=== PATIENT | male | born 1990 | race Caucasian/White ===

== ENCOUNTER 2016-09-23 15:34 | Emergency (ER) | payer OTHER ==
[2016-09-23 15:41] VITALS: BP 117/83; PULSE 73; TEMP 98.1; BMI 24.3
[2016-09-23] MEDS ORDERED: IBUPROFEN 400 MG TABLET (FP) PO ONE ×2 (16:39→16:41)
--- NOTE | 2016-09-23 16:41 | PDOC ---
History of Present Illness - General Chief Complaint: Injury Stated Complaint: BACK PAIN Time Seen by Provider: 09/23/16 16:21 History Source: Patient - History of Present Illness Occurred: reports: other Pain Location: reports: back Past History - Past Medical History Allergies/Adverse Reactions: Allergies Allergy/AdvReac Type Severity Reaction Status Date / Time No Known Allergies Allergy Verified 09/23/16 15:41 Home Medications: Ambulatory Orders Cyclobenzaprine HCl [Flexeril 10 mg] 10 mg PO TID PRN #9 tablet 09/23/16 Ibuprofen [Motrin -] 800 mg PO Q6H #30 tablet 09/23/16 Other medical history: denies - Psycho/Social/Smoking Cessation Hx Suicidal Ideation: No Smoking History: Never smoked Hx Alcohol Use: No Drug/Substance Use Hx: No Substance Use Type: None Review of Systems - Review of Systems Constitutional: No: Chills, Fever : No: Dysuria, Hematuria Musculoskeletal: Yes: Back Pain Neurological: No: Numbness, Tingling, Weakness *Physical Exam - Vital Signs Last Vital Signs Temp Pulse Resp BP Pulse Ox 98.1 F 73 17 117/83 98 09/23/16 15:40 09/23/16 15:40 09/23/16 15:40 09/23/16 15:40 09/23/16 15:40 - Physical Exam General Appearance: Yes: Appropriately Dressed, Mild Distress HEENT: positive: Normal Voice Neck: positive: Supple Respiratory/Chest: negative: Respiratory Distress Gastrointestinal/Abdominal: positive: Soft. negative: Tender Musculoskeletal: positive: Other (+ttp over R lower paraspinal musles). negative: CVA Tenderness Extremity: positive: Normal Inspection Integumentary: positive: Dry, Warm Neurologic: positive: Fully Oriented, Alert, Normal Mood/Affect Medical Decision Making - Medical Decision Making 09/23/16 16:37 26-year-old male, no significant history, presents with right lower back pain status post heavy lifting at work 3 days ago. Describes pain as achy, constant , 7 out of 10 at its worse and worse with bending. No lower extremity weakness , bowel/bladder incontinence or saddle anesthesia. No symptoms, nausea, vomiting, fever or chills. Taking tylenol with some relief. Patient well- appearing and stable with no red flags on exam. Pain most likely muscular. DC with pain control 09/23/16 16:41 *DC/Admit/Observation/Transfer Diagnosis at time of Disposition: Low back strain Qualifiers: Encounter type: initial encounter Qualified Code(s): S39.012A - Strain of muscle, fascia and tendon of lower back, initial encounter - Discharge Dispostion Disposition: HOME Condition at time of disposition: Good - Prescriptions Prescriptions: Cyclobenzaprine HCl [Flexeril 10 mg] 10 mg PO TID PRN #9 tablet PRN Reason: Back Pain Ibuprofen [Motrin -] 800 mg PO Q6H #30 tablet - Patient Instructions Printed Discharge Instructions: Low Back Pain - Post Discharge Activity Work/School Note: Back to Work
== END 2016-09-23 16:43 | disposition home or self-care (01) ==
LOC: JERFT 15:34
DX: S39.012A Strain of muscle, fascia and tendon of lower back, initial encounter (principal); X50.0XXA Overexertion from strenuous movement or load, initial encounter; Y93.89 Activity, other specified; Y92.63 Factory as the place of occurrence of the external cause; Y99.0 Civilian activity done for income or pay
CPT/HCPCS: 99281-25

== ENCOUNTER 2017-01-02 22:39 | Emergency (ER) | payer OTHER ==
[2017-01-02 22:56] VITALS: BP 131/64; PULSE 72; TEMP 98.4; BMI 24.3
--- NOTE | 2017-01-03 01:36 | PDOC ---
History of Present Illness - General Chief Complaint: Pain Stated Complaint: perianal pain Time Seen by Provider: 01/03/17 01:11 History Source: Patient Exam Limitations: No Limitations - History of Present Illness Initial Comments: 01/03/17 01:30 This is a 26 yo woman without medical history who presents today with perianal pain over 2 days. He states that he felt "a bump" near his anus yesterday which is tender. He denies rectal bleeding, difficulty moving bowels, need to strain to move bowels. He denies trauma, dysuria, testicular pain. Timing/Duration: reports: other (2 days) Severity: Yes: mild Location: reports: other (perianal) Past History - Past Medical History Allergies/Adverse Reactions: Allergies Allergy/AdvReac Type Severity Reaction Status Date / Time No Known Allergies Allergy Verified 01/02/17 22:52 Home Medications: Ambulatory Orders Cyclobenzaprine HCl [Flexeril 10 mg] 10 mg PO TID PRN #9 tablet 09/23/16 Ibuprofen [Motrin -] 800 mg PO Q6H #30 tablet 09/23/16 Other medical history: Pt denies - Psycho/Social/Smoking Cessation Hx Suicidal Ideation: No Smoking History: Never smoked Information on smoking cessation initiated: No Hx Alcohol Use: No Drug/Substance Use Hx: No Substance Use Type: None Review of Systems - Review of Systems Able to Perform ROS?: Yes Is the patient limited Yakut proficient: No Constitutional: No: Symptoms Reported HEENTM: No: Symptoms Reported Respiratory: No: Symptoms reported Cardiac (ROS): No: Symptoms Reported ABD/GI: Yes: Other (pain with bowel movements. ) : No: Symptoms Reported Musculoskeletal: No: Symptoms Reported Integumentary: No: Symptoms Reported Neurological: No: Symptoms reported *Physical Exam - Vital Signs Last Vital Signs Temp Pulse Resp BP Pulse Ox 98.4 F 72 20 131/64 98 01/02/17 22:53 01/02/17 22:53 01/02/17 22:53 01/02/17 22:53 01/02/17 22:53 - Physical Exam General Appearance: Yes: Appropriately Dressed. No: Apparent Distress HEENT: positive: EOMI, Normal ENT Inspection Neck: positive: Trachea midline, Supple Respiratory/Chest: positive: Lungs Clear, Normal Breath Sounds. negative: Respiratory Distress, Accessory Muscle Use Cardiovascular: positive: Regular Rhythm, Regular Rate, S1, S2. negative: Edema , JVD, Murmur Gastrointestinal/Abdominal: positive: Normal Bowel Sounds, Soft. negative: Tender Male Genitalia: positive: normal prostate Rectal Exam: positive: NL Prostate, normal rectal tone, hemorrhoids (non thrombosed) Musculoskeletal: positive: Normal Inspection. negative: CVA Tenderness Extremity: positive: Normal Capillary Refill, Normal Inspection, Normal Range of Motion Integumentary: positive: Normal Color, Dry, Warm Neurologic: positive: pinsetter mechanic automatic II-XII NML intact, Fully Oriented, Alert, Normal Mood/ Affect, Normal Response, Motor Strength 10/04 Medical Decision Making - Medical Decision Making 01/03/17 01:36 A/P: This is a 26 yo woman without medical history who presents today with perianal pain over 2 days. He states that he felt "a bump" near his anus yesterday which is tender. He denies rectal bleeding, difficulty moving bowels, need to strain to move bowels. He denies trauma, dysuria, testicular pain. Visible non- thrombosed hemorrhoid located at 4 o'clock position. - Tucks - discharge I discussed the physical exam findings, ancillary test results and final diagnoses with the patient. I answered all of the patient's questions. The patient was satisfied with the care received and felt comfortable with the discharge plan and treatment plan. The patient will call PMD within 72 hours to arrange follow-up and will return to the Emergency Department with any new, persistent or worsening symptoms. *DC/Admit/Observation/Transfer Diagnosis at time of Disposition: Hemorrhoids, external without complications - Discharge Dispostion Disposition: HOME Condition at time of disposition: Good Admit: No - Referrals Referrals: Markus Ardon MD [Staff Physician] - - Patient Instructions Printed Discharge Instructions: DI for Hemorrhoids Additional Instructions: Use Tucks pads (witch alejandra) for pain relief. You have been given a referral to a primary doctor. Call Dr. Lim for an appointment in 2 weeks. Return to ER for rectal bleeding, severe pain, or any other concerns.
--- NOTE | 2017-01-04 08:19 | EKG ---
Test Reason : Blood Pressure : / mmHG Vent. Rate : 060 BPM Atrial Rate : 060 BPM P-R Int : 176 ms QRS Dur : 084 ms QT Int : 386 ms P-R-T Axes : 028 046 031 degrees QTc Int : 386 ms NORMAL SINUS RHYTHM NORMAL ECG NO PREVIOUS ECGS AVAILABLE Confirmed by ADITYA JAY, MAMADOU ([id number]) on 01/04/2017 8:19:26 AM Referred By: Confirmed By:MAMADOU BURGESS MD
== END 2017-01-03 01:54 | disposition home or self-care (01) ==
LOC: JER 22:39
DX: K64.4 Residual hemorrhoidal skin tags (principal)
CPT/HCPCS: 93005; 93010; 99282-25

== ENCOUNTER 2017-07-20 20:35 | Emergency (ER) | payer OTHER ==
[2017-07-20 20:53] VITALS: BP 112/72; PULSE 78; TEMP 98; BMI 24.7
[2017-07-20 21:01] LABS: URINE APPEARANCE CLEAR; URINE BILIRUBIN NEGATIVE (NEGATIVE); URINE BLOOD NEGATIVE (NEGATIVE); URINE COLOR LTYELLOW; URINE GLUCOSE (UA) NEGATIVE (NEGATIVE); URINE KETONE NEGATIVE (NEGATIVE); URINE LEUK ESTERASE NEGATIVE (NEGATIVE); URINE NITRITE NEGATIVE (NEGATIVE); URINE PROTEIN NEGATIVE (NEGATIVE); URINE UROBILINOGEN NEGATIVE mg/dL (0.2-1.0)
--- NOTE | 2017-07-20 22:44 | PDOC ---
History of Present Illness - General Chief Complaint: Pain, Acute Stated Complaint: ABDOMINAL PAIN Time Seen by Provider: 07/20/17 22:31 History Source: Patient - History of Present Illness Initial Comments: 07/20/17 23:20 26 year old male with left groin pain after lifting a heavy box at work 10 days ago. patient reports pain is worse with lifting straining. denies NVD, fever/ chills, urinary symptoms. no omhx/ no pshx Past History - Past Medical History Allergies/Adverse Reactions: Allergies Allergy/AdvReac Type Severity Reaction Status Date / Time No Known Allergies Allergy Verified 07/20/17 20:51 Home Medications: Ambulatory Orders NK [No Known Home Medication] 07/20/17 - Suicide/Smoking/Psychosocial Hx Smoking History: Never smoked Hx Alcohol Use: No Drug/Substance Use Hx: No Substance Use Type: None *Physical Exam - Vital Signs Last Vital Signs Temp Pulse Resp BP Pulse Ox 98 F 78 16 112/72 98 07/20/17 20:52 07/20/17 20:52 07/20/17 20:52 07/20/17 20:52 07/20/17 20:52 - Physical Exam General Appearance: Yes: Appropriately Dressed Respiratory/Chest: positive: Lungs Clear, Normal Breath Sounds Gastrointestinal/Abdominal: positive: Normal Bowel Sounds, Soft. negative: Tender Male Genitalia: positive: normal genitalia. negative: testicular tenderness, inguinal hernia (no inguinal hernia appreciated. ) Extremity: positive: Normal Capillary Refill, Normal Inspection, Normal Range of Motion Integumentary: positive: Normal Color, Dry, Warm Neurologic: positive: Fully Oriented, Alert ED Treatment Course - ADDITIONAL ORDERS Additional order review: Laboratory Results 07/20/17 20:53 Urine Color Ltyellow Urine Appearance Clear Urine pH 5.0 Ur Specific [place] 1.025 Urine Protein Negative Urine Glucose (UA) Negative Urine Ketones Negative Urine Blood Negative Urine Nitrite Negative Urine Bilirubin Negative Urine Urobilinogen Negative Ur Leukocyte Esterase Negative *DC/Admit/Observation/Transfer Diagnosis at time of Disposition: Hernia, abdominal Qualifiers: Hernia type: inguinal Obstruction and gangrene presence: without obstruction or gangrene Laterality: unilateral Recurrence: non-recurrent Qualified Code(s): K40.90 - Unilateral inguinal hernia, without obstruction or gangrene, not specified as recurrent - Discharge Dispostion Disposition: HOME - Referrals Referrals: Julio Ferraro MD [Staff Physician] - - Patient Instructions Printed Discharge Instructions: Groin Hernia -- Adult Additional Instructions: avoid heavy lifting. follow up with your doctor as soon as possible. return to the ER if symptoms worsen. - Post Discharge Activity Forms/Work/School Notes: Back to Work
== END 2017-07-20 23:34 | disposition home or self-care (01) ==
LOC: JER 20:35
DX: K40.90 Unilateral inguinal hernia, without obstruction or gangrene, not specified as recurrent (principal); X50.0XXA Overexertion from strenuous movement or load, initial encounter; Y93.89 Activity, other specified; Y92.63 Factory as the place of occurrence of the external cause; Y99.0 Civilian activity done for income or pay
CPT/HCPCS: 81003; 99283-25

== ENCOUNTER 2021-02-06 19:09 | Emergency (ER) | payer BC, OTHER ==
[2021-02-06 19:53] VITALS: BP 116/78; PULSE 72; TEMP 98.4; BMI 27.3
== END 2021-02-06 21:00 | disposition home or self-care (01) ==
LOC: JER 19:09
DX: L72.0 Epidermal cyst (principal)
CPT/HCPCS: 99281-25